=== PATIENT | male | born 1995 | race Caucasian/White ===

== ENCOUNTER 2017-08-16 11:13 | Emergency (ER) | payer OTHER ==
[~2017-08-16] VITALS: Ht 182.9 cm; Wt 95.8 kg
[2017-08-16 11:15] VITALS: BP 145/85
[2017-08-16 12:22] LABS: RAPID INFLUENZA A Negative (Negative); RAPID INFLUENZA B POSITIVE (Negative)
== END 2017-08-16 13:08 | disposition home or self-care (01) ==
LOC: ED 13:00
DX: J10.1 Influenza due to other identified influenza virus with other respiratory manifestations (principal)
CPT/HCPCS: 71020; 87400; 99285

== ENCOUNTER 2018-04-06 14:14 | Emergency (ER) | payer OTHER ==
[~2018-04-06] VITALS: Ht 180.3 cm; Wt 96.2 kg
[2018-04-06 14:37] VITALS: BP 184/94
[2018-04-06] MEDS ORDERED: HYDROcodone/APAP 5/325 TABLET ONE (14:58)
[2018-04-06] MEDS ORDERED: HYDROcodone/APAP 5/325 TABLET PO ONE (15:00)
== END 2018-04-06 16:25 | disposition home or self-care (01) ==
LOC: ED 16:00
DX: S06.0X0A Concussion without loss of consciousness, initial encounter (principal); S00.83XA Contusion of other part of head, initial encounter; Y04.2XXA Assault by strike against or bumped into by another person, initial encounter; Y93.89 Activity, other specified; Y92.89 Other specified places as the place of occurrence of the external cause; Y99.8 Other external cause status
CPT/HCPCS: 70450; 70486; 72125; 99284

== ENCOUNTER 2019-06-13 10:32 | Emergency (ER) | payer SELFPAY ==
[~2019-06-13] VITALS: Ht 180.3 cm; Wt 97.7 kg
[2019-06-13 10:42] VITALS: BP 156/95
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
== END 2019-06-13 11:57 ==
LOC: ED 11:48
DX: S93.601A Unspecified sprain of right foot, initial encounter (principal); X58.XXXA Exposure to other specified factors, initial encounter; Y93.89 Activity, other specified; Y92.410 Unspecified street and highway as the place of occurrence of the external cause; Y99.8 Other external cause status
CPT/HCPCS: 99283